=== PATIENT | male | born 1985 | race African-American/Black ===

== ENCOUNTER 2019-11-27 13:35 | Emergency (ER) | payer OTHER ==
--- NOTE | 2019-11-27 15:19 | RAD ---
Right shoulder 3 views HISTORY: Injury. FINDINGS: Acromioclavicular and glenohumeral alignment are maintained. No acute fracture or dislocati on. IMPRESSION: No acute osseous abnormalities are demonstrated.
== END 2019-11-27 15:45 ==
LOC: ERS 13:35
DX: S46.911A Strain of unspecified muscle, fascia and tendon at shoulder and upper arm level, right arm, initial encounter (principal); J45.909 Unspecified asthma, uncomplicated; F17.200 Nicotine dependence, unspecified, uncomplicated; Y04.0XXA Assault by unarmed brawl or fight, initial encounter